=== PATIENT | female | born 1990 | race Hispanic/Latino ===

== ENCOUNTER 2016-08-08 10:02 | Observation (INO) | payer MEDICAID ==
[2016-08-08 10:30] VITALS: BMI 31.1
[2016-08-08 11:27] LABS: BASO # 0.1 K/uL (0.0-0.2); BASO % 0.8 % (0.0-2.0); EOS % 0.5 % (0.0-4.0); HEMATOCRIT 38.5 % (34.0-47.0); LYMPH # 1.5 K/uL (1.0-4.3); LYMPH % 21.1 % (20.0-40.0); MEAN CELL VOLUME 82.1 fl (81.0-99.0); MEAN CORPUSCULAR HEMOGLOBIN 26.7 pg (27.0-31.0); MEAN CORPUSCULAR HGB CONC 32.6 g/dL (33.0-37.0); MEAN PLATELET VOLUME 7.8 fl (7.2-11.7); MONO # 0.4 K/uL (0.0-0.8); MONO % 5.5 % (0.0-10.0); NEUT # 5.3 K/uL (1.8-7.0); NEUT % 72.1 % (50.0-75.0); WHITE BLOOD COUNT 7.3 K/uL (4.8-10.8)
[2016-08-08 11:35] LABS: ALB/GLOB RATIO 1.2 (1.0-2.1); ALCOHOL SERUM < 10 mg/dl (0-10); ALKALINE PHOSPHATASE 66 U/L (38-126); ALT/SGPT 26 U/L (9-52); AST/SGOT 23 U/L (14-36); BILIRUBIN,TOTAL 0.7 mg/dl (0.2-1.3); BLOOD UREA NITROGEN 15 mg/dl (7-17); CALCIUM 9.9 mg/dL (8.4-10.2); CARBON DIOXIDE 22 mmol/L (22-30); CHLORIDE 104 mmol/L (98-107); GFR AFRICAN-AMERICAN > 60; GLUCOSE,RANDOM 100 mg/dL (65-105); POTASSIUM 4.1 MMOL/L (3.6-5.0); SODIUM 139 mmol/l (132-148); TOTAL PROTEIN 8.1 G/DL (6.3-8.2)
--- NOTE | 2016-08-08 14:21 | ED PDOC ---
HPI: Psych/Substance Abuse Time Seen by Provider: 08/08/16 10:29 Chief Complaint (Nursing): Psychiatric Evaluation Chief Complaint (Provider): Psychiatric Evaluation ED Caveat: Psychotic History Per: Patient History/Exam Limitations: clinical condition Onset/Duration Of Symptoms: Hrs Current Symptoms Are (Timing): Still Present Suicide/Self Injury Attempted (Context): None Modifying Factor(s): None Severity: Severe Associated Symptoms: Agitation Involuntary Hold By: Emergency Physician Additional Complaint(s): Patient is a 26 year old female brought to ED by EMS after verbal altercation with significant other, threatening to self and staff. Patient was found to have severe agitation, irrational thoughts and required relief with medication upon immediate arrival to ED for improved lucidity and insight. History limited due to agitation. Past Medical History Reviewed: Historical Data, Nursing Documentation, Vital Signs - Medical History PMH: No Chronic Diseases Denies: Diabetes, Hepatitis, HIV, HTN, Seizures, Sexually Transmitted Disease - Surgical History Surgical History: No Surg Hx - Family History Family History: States: Unknown Family Hx - Living Arrangements Living Arrangements: With Family - Home Medications Home Medications: Ambulatory Orders Medication Instructions Recorded Ibuprofen [Motrin Tab] 800 mg PO TID #30 tab 05/26/14 Oxycodone HCl/Acetaminophen 1 tab PO DAILY #20 tab 05/26/14 [Percocet 325 mg-5 mg] Acetaminophen with Codeine 1 tab PO Q4H PRN #15 tab 08/25/15 [Tylenol with Codeine No. 3 300 mg-30 mg] Cyclobenzaprine [Flexeril] 5 mg PO Q8 PRN #15 tab 08/25/15 Naproxen [Naprosyn] 1 tab PO BID PRN #60 tab 08/25/15 Naproxen [Naprosyn] 500 mg PO Q12H #20 tab 10/31/15 Penicillin VK [Pen-Vee K] 500 mg PO Q6 #40 tab 10/31/15 - Allergies Allergies/Adverse Reactions: Allergies Allergy/AdvReac Type Severity Reaction Status Date / Time No Known Allergies Allergy Verified 08/25/15 18:09 Review of Systems Review Of Systems: ROS cannot be obtained secondary to pt's inabilty to answer questions. Physical Exam - Physical Exam Appears: Positive for: Non-toxic Head Exam: Positive for: ATRAUMATIC, NORMAL INSPECTION Skin: Positive for: Normal Color, Warm Eye Exam: Positive for: Normal appearance Neck: Positive for: Normal Cardiovascular/Chest: Positive for: Regular Rate, Rhythm. Negative for: Murmur Respiratory: Positive for: Normal Breath Sounds. Negative for: Respiratory Distress Extremity: Positive for: Normal ROM Neurologic/Psych: Positive for: Mood/Affect (Acute agitated ), Other (Difficult to properly assess: Speech clear ) - Laboratory Results Result Diagrams: 08/08/16 11:04 08/08/16 11:04 Medical Decision Making Medical Decision Making: Time: 1030 Initial impression: Psychiatric evaluation Initial plan: -- Tylenol level -- Alcohol serum -- Beta-HcG -- CMP -- UDS -- HcG -- Salicylate -- Ativan and Haldol Time 1410 Patient evaluated by crisis, will likely require [facility] [place] screening Plan: -- ED obs Scribe Attestation: Documented by Ginger Live acting as a scribe for Shayan Davenport DO MD Scribe Attestation: All medical record entries made by the Scribe were at my direction and personally dictated by me. I have reviewed the chart and agree that the record accurately reflects my personal performance of the history, physical exam, medical decision making, and the department course for this patient. I have also personally directed, reviewed, and agree with the discharge instructions and disposition. ED OBSERVATION Date of observation admission: 08/08/16 Time of observation admission: 14:20 - Observation admission statement Patient is being placed in observation because:: given need for frequent re-evaluation, relief of agitation and psychiatric eval - Goals of Observation Goals of observation are:: [facility] [place] screening - Progress Note Progress Note: 08/08/16 15:[address] Valencia pending evaluation Disposition - Clinical Impression Clinical Impression: Adjustment disorder - Patient ED Disposition Is Patient to be Admitted: Transfer of Care - Disposition Disposition: Transfer of Care Disposition Time: 14:20 Condition: STABLE Patient Signed Over To: Sarah Valencia Handoff Comments: pending crisis eval and dispo
--- NOTE | 2016-08-08 16:21 | ED PDOC ---
- Laboratory Results Result Diagrams: 08/08/16 11:04 08/08/16 11:04 - ECG O2 Sat by Pulse Oximetry: 96 Medical Decision Making Medical Decision Making: Time: 1500 Patient signed out by pending [facility] [place] screening MEDICAL CLEARANCE: Pt medically cleared for psychiatric admission. Scribe Attestation: Documented by Ginger Live acting as a scribe for Sarah Valencia MD MD Scribe Attestation: All medical record entries made by the Scribe were at my direction and personally dictated by me. I have reviewed the chart and agree that the record accurately reflects my personal performance of the history, physical exam, medical decision making, and the department course for this patient. I have also personally directed, reviewed, and agree with the discharge instructions and disposition. Disposition - Clinical Impression Clinical Impression: Adjustment disorder - POA Present On Arrival: None - Disposition Disposition: Transfer of Care Disposition Time: 00:00 Condition: STABLE Patient Signed Over To: Bart Pope
--- NOTE | 2016-08-08 17:25 | RAD ---
HISTORY: med clr COMPARISON: Chest x-ray performed 08/25/15, CTA chest performed 08/25/15 TECHNIQUE: Chest, one view. FINDINGS: Examination limited by habitus. LUNGS: No focal consolidation. Please note that chest x-ray has limited sensitivity for the detection of pulmonary masses. PLEURA: No significant pleural effusion identified. No definite pneumothorax . CARDIOVASCULAR: The cardiomediastinal silhouette appears within normal limits of size. OSSEOUS STRUCTURES: No acute osseous abnormality identified. VISUALIZED UPPER ABDOMEN: Unremarkable. OTHER FINDINGS: None. IMPRESSION: No focal consolidation, significant pleural effusion, or definite pneumothorax identified.
[2016-08-08 18:22] LABS: RBC URINE 6 /hpf (0-3); URINE BACTERIA FEW (<OCC); URINE BILIRUBIN NEGATIVE (NEGATIVE); URINE BLOOD LARGE (NEGATIVE); URINE COLOR YELLOW (YELLOW); URINE GLUCOSE (UA) NEG (Normal); URINE KETONE 20 mg/dL (NEGATIVE); URINE LEUKOCYTE ESTERASE NEG Leu/uL (Negative); URINE PROTEIN 30 mg/dL (NEGATIVE); URINE UROBILINOGEN 0.2-1.0 mg/dL (0.2-1.0); WBC URINE 4 /hpf (0-5)
[2016-08-08 19:33] VITALS: RESP 18
--- NOTE | 2016-08-09 00:47 | ED PDOC ---
- Laboratory Results Result Diagrams: 08/08/16 11:04 08/08/16 11:04 - ECG O2 Sat by Pulse Oximetry: 96 Medical Decision Making Medical Decision Making: Patient s/o from Dr. Valencia at 0000 pending [facility] screener paige. 0640: Patient evaluated by [facility] screener and cleared for d/c. Dx: adjustment disorder stable Scribe Attestation: Documented by Nitin Renteria acting as a scribe for Bart Pope MD. Provider Scribe Attestation: All medical record entries made by the Scribe were at my direction and personally dictated by me. I have reviewed the chart and agree that the record accurately reflects my personal performance of the history, physical exam, medical decision making, and the department course for this patient. I have also personally directed, reviewed, and agree with the discharge instructions and disposition. Disposition - Clinical Impression Clinical Impression: Adjustment disorder - POA Present On Arrival: None - Disposition Disposition: Routine/Home Disposition Time: 14:20 Condition: STABLE
[2016-08-09 05:28] VITALS: BP 124/61; PULSE 67; TEMP 97.9
[2016-08-09 06:42] VITALS: O2SAT 96
--- NOTE | 2016-08-09 08:51 | CARD ---
APPROVED REPORT EKG Measurement Heart [id number] <Conclusion> Normal sinus rhythm Nonspecific T wave abnormality Abnormal ECG
== END 2016-08-09 06:41 | disposition home or self-care (01) ==
LOC: H.ER 10:02 → H.EROBSV 14:20
PROVIDERS: ADMIT Emergency Medicine; ATTEND Emergency Medicine
DX: F43.20 Adjustment disorder, unspecified (principal)